=== PATIENT | male | born 1990 | race Caucasian/White ===

== ENCOUNTER 2018-12-28 16:51 | Emergency (ER) | payer MEDICAID ==
[~2018-12-28] VITALS: Ht 180.3 cm; Wt 61.4 kg
[~2018-12-28 16:51] MED LIST: LINE600T36 PO
[2018-12-28] MEDS ORDERED: normal saline 1000ML IV soln IVB ONE (17:10)
[2018-12-28] MEDS ORDERED: ondansetron/PF 4mg/2ml inj IV ONE (17:10)
[2018-12-28 18:20] VITALS: BP 133/91
== END 2018-12-28 18:23 | disposition home or self-care (01) ==
LOC: ER 16:52
DX: T40.1X1A Poisoning by heroin, accidental (unintentional), initial encounter (principal); F15.90 Other stimulant use, unspecified, uncomplicated; Z59.0 Homelessness; Y92.89 Other specified places as the place of occurrence of the external cause
CPT/HCPCS: 96374; 99291; J2405; J7030

== ENCOUNTER 2020-07-24 15:31 | Emergency (ER) | payer MEDICAID ==
[~2020-07-24] VITALS: Ht 180.3 cm; Wt 59.7 kg
[~2020-07-24 15:31] MED LIST changes: +LINE600T11 PO; -LINE600T36 PO
[2020-07-24 15:40] VITALS: BP 137/97
[2020-07-24] MEDS ORDERED: LIDOcaine 1% W/epiNEPHrine 1:200,000 10ml vial IJ ONE (16:50)
[2020-07-24] MEDS ORDERED: CEPH250T PO (17:08)
[2020-07-24] MEDS ORDERED: BACDS PO (17:08)
== END 2020-07-24 17:33 | disposition home or self-care (01) ==
LOC: ER 15:33
DX: L02.414 Cutaneous abscess of left upper limb (principal); F15.90 Other stimulant use, unspecified, uncomplicated; F11.90 Opioid use, unspecified, uncomplicated; Z79.2 Long term (current) use of antibiotics; Z79.899 Other long term (current) drug therapy; Z59.0 Homelessness
CPT/HCPCS: 10060; 99283

== ENCOUNTER 2023-10-21 16:11 | Inpatient (IN) | payer MEDICAID ==
[~2023-10-21] VITALS: Ht 180.3 cm; Wt 77.4 kg
[2023-10-21 18:27] LABS: BASOPHILS % (AUTO) 0.4 % (0-1); EOSINOPHILS # (AUTO) 0.2 X10'3 (0-0.9); EOSINOPHILS % (AUTO) 2.2 % (0-6); HEMOGLOBIN 13.7 g/dl (14.0-17.9); LYMPHOCYTES # (AUTO) 1.3 X10'3 (1.1-4.8); LYMPHOCYTES % (AUTO) 13.1 % (21-51); MEAN CORPUSCULAR HEMOGLOBIN 29.8 PG (27.0-31.0); MEAN CORPUSCULAR HGB CONC 33.5 g/dL (33.0-36.5); MEAN CORPUSCULAR VOLUME 88.9 FL (78-98); MEAN PLATELET VOLUME 7.5 FL (7.4-10.4); MONOCYTES # (AUTO) 0.8 X10'3 (0-0.9); MONOCYTES % (AUTO) 8.6 % (2-12); NEUTROPHILS # (AUTO) 7.3 X10'3 (1.8-7.7); NEUTROPHILS % (AUTO) 75.7 % (42-75); PLATELET COUNT 357 X10'3 (140-440); RED BLOOD COUNT 4.61 X10'6 (4.70-6.10); RED CELL DISTRIBUTION WIDTH 14.1 % (11.5-14.5); WHITE BLOOD COUNT 9.7 X10'3 (4.5-11.0)
[2023-10-21 18:37] LABS: ALBUMIN 3.6 G/DL (3.4-5.0); ANION GAP 5 (8-16); BLOOD UREA NITROGEN 15 MG/DL (7-18); BUN/CREATININE RATIO 15.6 (10.0-20.0); CHLORIDE 100 MMOL/L (99-107); CREATININE 0.96 MG/DL (0.60-1.10); GLUCOSE 77 MG/DL (70-104); POTASSIUM 4.2 MMOL/L (3.5-5.1); SODIUM 139 MMOL/L (135-145); TOTAL CARBON DIOXIDE 34.5 MMOL/L (24-32); eCRCL 100 ML/MIN; eGFR 89 ML/MIN
[2023-10-21] MEDS ORDERED: iohexol 300mg/ml 100ml inj. ONE (18:46)
[2023-10-21] MEDS: ringers solution, lacted 1,000 ML IV ONE (19:17)
[2023-10-21] MEDS: vancomycin/NS 1 GM ADD-VANTAGE 250 ML IV ONE (20:08)
[2023-10-21] MEDS: normal saline 1000ml 1,000 ML IV SCH ×2 (20:33→21:58)
[2023-10-21] MEDS ORDERED: potassium Cl 40MEQ/1/2NS 520ml 520 ML IV PRN (21:35)
[2023-10-21] MEDS ORDERED: potassium Cl 20 mEq SR tablet PO PRN ×2 (21:35)
[2023-10-21] MEDS ORDERED: magnesium 4gm in 100ml NS 100 ML IV PRN (21:35)
[2023-10-21] MEDS ORDERED: magnesium 2GM in 50ml NS 50 ML IV PRN (21:35)
[2023-10-21] MEDS ORDERED: acetaminophen 325mg tablet PO PRN (21:35)
[2023-10-21] MEDS ORDERED: magnesium hydroxide 30ml (MOM) UD suspension PO PRN (21:35)
[2023-10-21] MEDS ORDERED: mag hydrox/Alum hydrox/simeth 30ml oral suspension PO PRN (21:35)
[2023-10-21] MEDS ORDERED: magnesium Cl slow-release 64mg tablet PO PRN (21:35)
[2023-10-21] MEDS ORDERED: ondansetron/PF 4mg/2ml inj IV PRN (21:35)
[2023-10-21] MEDS ORDERED: ketorolac tromethamine 15mg/ml inj. IV PRN (21:45)
[2023-10-21] MEDS: piperacillin/tazo 4.5gm/100ml 100 ML IV ONE (21:59)
[2023-10-21 22:17] LABS: HEMOGLOBIN A1C 4.9 % (4.5-6.2)
[2023-10-22 04:24] LABS: BILIRUBIN,URINE NEGATIVE (Neg); CLARITY,URINE CLEAR (Clear); COLOR,URINE YELLOW (Yellow); GLUCOSE, URINE NEGATIVE (Neg); KETONES,URINE NEGATIVE (Neg); LEUKOCYTE ESTERASE ,URINE NEGATIVE (Neg); NITRITES, URINE NEGATIVE (Neg); OCCULT BLOOD,URINE NEGATIVE (Neg); PROTEIN,URINE NEGATIVE (Neg); UROBILINOGEN,URINE 0.2 E.U/dL (0.2-1.0)
[2023-10-22 04:36] LABS: UA COLLECTION TYPE CLN CATCH MIDSTREAM
[2023-10-22] MEDS ORDERED: DOL10T PO (05:32)
[2023-10-22] MEDS: CefTRIAXone/D5W-Rocephin 1gm 50 ML IV SCH (07:52)
[2023-10-22] MEDS: K and/or MAG REPLACEMENT MC SCH (08:00)
[2023-10-22] MEDS ORDERED: methadone 10mg tablet PO SCH (08:00)
[2023-10-22 08:38] LABS: BASOPHILS % (AUTO) 0.2 % (0-1); EOSINOPHILS # (AUTO) 0.2 X10'3 (0-0.9); EOSINOPHILS % (AUTO) 2.9 % (0-6); HEMATOCRIT 38.1 % (42.0-52.0); HEMOGLOBIN 12.9 g/dl (14.0-17.9); LYMPHOCYTES # (AUTO) 1.3 X10'3 (1.1-4.8); LYMPHOCYTES % (AUTO) 17.4 % (21-51); MEAN CORPUSCULAR HEMOGLOBIN 30.1 PG (27.0-31.0); MEAN CORPUSCULAR VOLUME 88.7 FL (78-98); MEAN PLATELET VOLUME 7.5 FL (7.4-10.4); MONOCYTES # (AUTO) 0.7 X10'3 (0-0.9); MONOCYTES % (AUTO) 8.8 % (2-12); NEUTROPHILS # (AUTO) 5.5 X10'3 (1.8-7.7); NEUTROPHILS % (AUTO) 70.7 % (42-75); PLATELET COUNT 273 X10'3 (140-440); RED BLOOD COUNT 4.29 X10'6 (4.70-6.10); RED CELL DISTRIBUTION WIDTH 13.7 % (11.5-14.5); WHITE BLOOD COUNT 7.7 X10'3 (4.5-11.0)
[2023-10-22 08:48] LABS: ALANINE AMINOTRANSFERASE 21 U/L (12-78); ALBUMIN 2.9 G/DL (3.4-5.0); ALBUMIN/GLOBULIN RATIO 0.8 (1.1-1.5); ALKALINE PHOSPHATASE 87 IU/L (46-116); ANION GAP 0 (8-16); ASPARTATE AMINO TRANSFERASE 18 U/L (10-37); BILIRUBIN,TOTAL 0.4 MG/DL (0.1-1.0); BLOOD UREA NITROGEN 10 MG/DL (7-18); BUN/CREATININE RATIO 11.4 (10.0-20.0); CALCIUM 8.5 MG/DL (8.5-10.1); CHLORIDE 105 MMOL/L (99-107); CHOL/HDL RATIO 2.7 (0.00-4.99); CHOLESTEROL 153 MG/DL (0-200); CREATININE 0.88 MG/DL (0.60-1.10); GLUCOSE 78 MG/DL (70-104); HDL CHOLESTEROL 57 MG/DL (35-60); LDL CHOLESTEROL 85 MG/DL (50-100); PHOSPHORUS 3.6 MG/DL (2.3-4.5); SODIUM 138 MMOL/L (135-145); TOTAL CARBON DIOXIDE 33.3 MMOL/L (24-32); TOTAL PROTEIN 6.7 G/DL (6.4-8.2); TRIGLYCERIDES 53 MG/DL (20-135); eCRCL 125 ML/MIN; eGFR > 90 ML/MIN
[2023-10-22] MEDS: methadone 10mg tablet PO SCH (09:50)
[2023-10-22] MEDS: heparin, porcine 5000 units/ml vial SQ SCH (09:51)
[2023-10-22] MEDS: VANCOmycin 1250MG/NS 250ml Bag 250 ML IV SCH (09:51)
[2023-10-22] MEDS: nicotine 14mg patch - 24hr TD SCH (09:52)
[2023-10-22 10:00] VITALS: BP 122/91; PULSE 70; RESP 16; TEMP 97.4; O2SAT 100
[2023-10-23] MEDS ORDERED: VANCOMYCIN LEVEL IV ONE (19:30)
== END 2023-10-22 14:05 | disposition left against medical advice (07) | DRG 383 ==
LOC: ER 16:12 → ED HOLD 21:44 → ORTHO 4S 10-22 08:15
PROVIDERS: ADMIT Internal Medicine Critical Care Medicine; ATTEND Internal Medicine
PROC: B42G1ZZ Computerized Tomography (CT Scan) of Left Lower Extremity Arteries using Low Osmolar Contrast (ICD-10-PCS; principal; 2023-10-21)
DX: L03.116 Cellulitis of left lower limb (principal); I38 Endocarditis, valve unspecified; F19.10 Other psychoactive substance abuse, uncomplicated; F11.90 Opioid use, unspecified, uncomplicated; F17.200 Nicotine dependence, unspecified, uncomplicated; Z53.29 Procedure and treatment not carried out because of patient's decision for other reasons; Z79.899 Other long term (current) drug therapy; Z59.00 Homelessness unspecified
CPT/HCPCS: 36415; 71045; 73701; 80048; 80053; 80061; 81003; 83036; 83605; 83735; 84100; 84145; 85025; 87040; 87081; 93005; 99285; A6258; G0378; J0696; J1644; J2543; J3370; J3490; J7030; J7120; Q9967

== ENCOUNTER 2024-07-30 20:26 | Emergency (ER) | payer MEDICAID ==
[~2024-07-30] VITALS: Ht 180.3 cm; Wt 67.6 kg
[~2024-07-30 20:26] MED LIST changes: +DOL10T PO; -LINE600T11 PO
[2024-07-30 20:34] VITALS: BP 138/104; PULSE 109; RESP 18; TEMP 97.9; O2SAT 99
[2024-07-30] MEDS ORDERED: SULF1TAB45 PO (21:46)
[2024-07-30] MEDS ORDERED: CEPH-585 PO (21:46)
[2024-07-30] MEDS: sulfamethoxazole/trimethoprim DS (800/160mg) tablet PO ONE (22:01)
[2024-07-30] MEDS: cephalexin 250mg capsule PO ONE (22:01)
== END 2024-07-30 22:13 | disposition home or self-care (01) ==
LOC: ER 20:27
DX: J34.0 Abscess, furuncle and carbuncle of nose (principal); F12.90 Cannabis use, unspecified, uncomplicated; F15.90 Other stimulant use, unspecified, uncomplicated; Z79.2 Long term (current) use of antibiotics
CPT/HCPCS: 99283